=== PATIENT | female | born 1985 | race Caucasian/White ===

== ENCOUNTER 2017-01-22 13:06 | Emergency (ER) | payer OTHER | END 2017-01-22 15:47 | disposition home or self-care (01) | LOC: FER 13:06 | DX: S63.633A Sprain of interphalangeal joint of left middle finger, initial encounter (principal); S66.313A Strain of extensor muscle, fascia and tendon of left middle finger at wrist and hand level, initial encounter; M65.332 Trigger finger, left middle finger; Z88.2 Allergy status to sulfonamides | CPT/HCPCS: 73140; 99283 ==